=== PATIENT | male | born 1960 | race Caucasian/White ===

== ENCOUNTER 2017-03-14 11:14 | Inpatient (IN) | payer MEDICARE ==
[~2017-03-14] VITALS: Ht 152.4 cm; Wt 84.8 kg
--- NOTE | ~2017-03-14 | PN ---
Unit #: [id number] #: [id number] Patient: DELANO DRISCOLL [id number] [facility] [address] [place] [address] [id number] MR#: [id number] NAME: DELANO DRISCOLL ROOM: 74 Age: 56 Sex: M Admission Date: 03/14/2017 : 1960 Attending Physician: Chad Justin M.D. Admitting Physician: Chad Justin M.D. Primary Care Physician: Primary Care Physician Chio HARRISON PROGRESS NOTES DATE 03/17/2017 DISCUSSION The patient is abed today and seems to be emerging from delirium tremens. He continues to express interest in possible residential chemical dependence treatment. Dictated by... Chad Justin M.D. CB/luana TD: 03/17/2017 16:10 JOB #: [id number] [facility] PROGRESS NOTES Page 1 of 1 X Chad Justin MD X PROGRESS NOTE
--- NOTE | ~2017-03-14 | DS ---
Unit #: [id number] #: [id number] Patient: DELANO DRISCOLL [id number] [place] [address] [id number] MR#: [id number] NAME: DELANO DRISCOLL ROOM: 74 Age: 56 Sex: M Admission Date: 03/14/2017 : 1960 Discharge Date: 03/20/2017 Attending Physician: Chad Justin M.D. Primary Care Physician: Primary Care Physician No DISCHARGE SUMMARY REASON FOR ADMISSION The patient is a 56-year-old white male, admitted with recurrent abuse of alcohol. HOSPITAL COURSE The patient was admitted to the [facility] unit and placed on a routine detoxification protocol for alcohol. He did enter delirium tremens and required one-to-one observation for a couple of days early in the hospitalization but these have resolved by 03/17. The patient continued participation in the therapeutic milieu and began working towards a residential chemical dependence followup. By 03/20, the patient was discharged. He was, during his time in the hospital, started on Campral which he tolerated without complaint. DISCHARGE DIAGNOSES Hartfield I Alcohol use disorder. Hartfield II Hartfield III Hartfield IV Hartfield V DISPOSITION ON DISCHARGE The patient is discharged on the following medications: Campral 333 mg two tablets three times daily for alcohol craving PROGNOSIS The patient's prognosis is considered fair. DIET AND ACTIVITY No dietary or physical restrictions were placed on the patient at the time of discharge. Follow up will take place through the auspices of community mental health resources. Dictated by... Chad Justin M.D. CB/shayy Unit #: [id number] #: [id number] Patient: DELANO DRISCOLL TD: 03/22/2017 09:24 JOB #: [id number] DISCHARGE SUMMARY Page 1 of 1 X Chad Justin MD X DISCHARGE SUMMARY
--- NOTE | ~2017-03-14 | PN ---
Unit #: [id number] #: [id number] Patient: DELANO DRISCOLL [id number] [facility] [address] [place] [address] [id number] I MR#: [id number] NAME: DELANO DRISCOLL ROOM: 74 Age: 56 Sex: M Admission Date: 03/14/2017 : 1960 Attending Physician: Chad Justin M.D. Admitting Physician: Chad Justin M.D. Primary Care Physician: Primary Care Physician Chio HARRISON PROGRESS NOTES DATE 03/18/2017 DISCUSSION The patient is active within therapeutic milieu. He is now expressing interest in treatment at a residence facility in [place], [place]. He will meet with family members today related to this wish. In the meantime, I will go ahead and start the patient on Campral 333 mg 2 tablets 3 times daily in hopes of reducing some of the patient's craving for alcohol. Dictated by... Chad Justin M.D. CB/abbey TD: 03/18/2017 13:48 JOB #: [id number] [facility] PROGRESS NOTES Page 1 of 1 X Chad Justin MD X PROGRESS NOTE
--- NOTE | ~2017-03-14 | PN ---
Unit #: [id number] #: [id number] Patient: DELANO DRISCOLL [id number] [facility] [address] [place] [address] [id number] MR#: [id number] NAME: DELANO DRISCOLL ROOM: P174 Age: 56 Sex: M Admission Date: 03/14/2017 : 1960 Attending Physician: Chad Justin M.D. Admitting Physician: Chad Justin M.D. Primary Care Physician: Primary Care Physician Chio HARRISON PROGRESS NOTES DATE 03/16/2017 DISCUSSION The patient is abed today. He remains quite groggy but seems to be emerging from his delirium as he is able today to discuss with this physician post discharge planning i.e. residential chemical dependence treatment. Dictated by... Chad Justin M.D. CB/luana TD: 03/16/2017 15:29 JOB #: [id number] [facility] PROGRESS NOTES Page 1 of 1 X Chad Justin MD PROGRESS NOTE
--- NOTE | ~2017-03-14 | PA ---
Unit #: [id number] #: [id number] Patient: DELANO DRISCOLL [id number] [place] [address] [id number] MR#: [id number] NAME: DELANO DRISCOLL ROOM: P174 Age: 56 Sex: M Admission Date: 03/14/2017 : 1960 Date of Assessment: 03/14/2017 Attending Physician: Chad Justin M.D. Admitting Physician: Chad Justin M.D. Primary Care Physician: Primary Care Physician No PSYCHIATRIC ASSESSMENT IDENTIFYING INFORMATION The patient is a 56-year-old white male admitted with increasing alcohol use. INFORMANT(S) Patient. RELIABILITY Good. CHIEF COMPLAINT None given. HISTORY OF PRESENT ILLNESS The patient is a 56-year-old white male with a long history of alcohol dependence. He was last treated at this facility in 2013. He is currently residing with his mother who is a retired physician in [place]. He has a history of drinking up to a gallon of "moonshine" on a daily basis. 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 The patient reports that yesterday during the solar eclipse, he was "dancing in the street naked." The patient reports that he did not get into any trouble with the police but was certain at that point that he needed to take steps to stop his alcohol use. He is currently denying suicidal or homicidal ideation or psychotic symptoms. PAST PSYCHIATRIC HISTORY As above, the patient has been hospitalized at facility on a couple of occasions related to his alcohol dependence. FAMILY HISTORY Noncontributory. SOCIAL HISTORY The patient is currently living with his mother. He is employed and disabled secondary to a history of hip surgery x3. He completed "some college." MEDICAL HISTORY The patient is status post hip surgery x2. MEDICATION HISTORY The patient was previously prescribed Strattera, Seroquel, Motrin and Ultram. It is unclear what medications he is taking at this time. Unit #: [id number] #: [id number] Patient: DELANO DRISCOLL ALLERGIES None reported. MENTAL STATUS EXAM At this time, reveals the patient to be a well-developed, well-nourished white male appearing his stated age. He is in no apparent physical distress at time of the examination. He is awake, alert, oriented in all spheres. His mood is mildly dysphoric. His affect congruent. Speech is generally relevant and coherent. There are no gross deficits in memory or cognition noted. Intelligence is judged to be in the average range based on fund of knowledge. The patient is cooperative throughout the interview. He is currently denying suicidal/homicidal or psychotic features. Judgement and insight appear to be intact. ASSETS AND LIABILITIES Patient's assets, motivation for change. Liabilities, lack of resources. ADMITTING DIAGNOSES 1. Alcohol dependence. 2. Attention deficit disorder by history. 3. History of hip surgery. PSYCHIATRIC PLAN/TREATMENT GOALS The patient remains hospitalized for safety and stabilization. Routine detoxification protocol will be initiated. 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 The patient is in agreement with this plan. ESTIMATED LENGTH OF STAY Five to seven days. Dictated by... Chad Justin M.D. SHENA/luana TD: 03/14/2017 15:02 JOB #: [id number] PSYCHIATRIC ASSESSMENT Page 1 of 1 X Chad Justin MD X PSYCHIATRIC ASSESSMENT
--- NOTE | ~2017-03-14 | HP ---
Unit #: [id number] #: [id number] Patient: GREG DRISCOLL [id number] [place] [address] [id number] I MR#: [id number] NAME: GREG DRISCOLL ROOM: P174 Age: 56 Sex: M Admission Date: 03/14/2017 : 1960 Attending Physician: Chad Justin M.D. Admitting Physician: Chad Justin M.D. Primary Care Physician: Primary Care Physician No HISTORY AND PHYSICAL HISTORY OF PRESENT ILLNESS Greg is a 56 year old admitted to [facility] because of his abuse of alcohol. He is detoxing. PAST MEDICAL HISTORY 1. Long history of alcohol abuse. 2. History of peptic ulcer disease. 3. History of withdrawal seizures. 4. History of DVT with PE's. 5. History of avascular necrosis bilateral hips. PAST SURGICAL HISTORY 1. Bilateral hip replacements. 2. Duodenal ulcer repair. ALLERGIES Codeine. SOCIAL HISTORY Smokes 1/2 pack per day. Drinks at least a gallon, sometimes 2 gallons of moonshine on a daily basis and denies illicit drug use. FAMILY HISTORY Medically noncontributory. REVIEW OF SYSTEMS CONSTITUTIONAL: No fever or chills. HEENT: Denies any sore throat, ear pain or runny nose. CARDIOVASCULAR: Denies chest pain, irregular heart rhythm or palpitations. CHEST: Denies shortness of breath or cough. No hemoptysis. GASTROINTESTINAL: Denies nausea, vomiting, diarrhea or chronic constipation. ENDOCRINE: Denies history of increased thirst or urination. No recent significant weight loss or gain. GENITOURINARY: Denies dysuria, frequency, or hematuria. SKIN: Denies any rashes. HEMATOLOGIC: Denies history of increased bleeding or bruising. MUSCULOSKELETAL: Denies any hot, swollen joints. No generalized muscle pain. NEUROLOGIC: Denies problems with vision or speech. No frequent, severe headaches. No numbness, tingling or weakness in any extremities. Denies loss of bladder or bowel control. Unit #: [id number] #: [id number] Patient: GREG DRISCOLL CURRENT MEDICATIONS 1. Detox protocol. 2. Aspirin 81 mg daily. PHYSICAL EXAMINATION GENERAL: Alert, well-nourished, in no apparent distress. VITAL SIGNS: Blood pressure 132/86, heart rate 100, respirations 16, temperature 98.6. WEIGHT: 187. HEIGHT: 5 feet 0 inches. SKIN: Warm and dry without rash or lesion. HEENT: Normocephalic. TMs not viewed. Oral and nasal passages clear. Conjunctivae clear. PERRLA. EOMs intact. NECK: Supple without lymphadenopathy or thyromegaly. HEART: Regular rate and rhythm without murmur. LUNGS: Clear. ABDOMEN: Soft, nontender. : Not done. EXTREMITIES: No evidence of cyanosis, clubbing or edema. Moves all without focal deficit. NEUROLOGICAL: Grossly within normal limits. Cranial Nerves: II: Visual calabrese are intact. III, IV AND : Extraocular movements are intact. Pupils are equal, round and reactive to light. V: Facial sensation is grossly normal. VII: Facial movements and expression are normal. VIII: Auditory acuity grossly intact. IX, X: Uvula is midline. Phonation is normal. XI: Patient shrugs shoulders and turns head normally. XII: Tongue protrudes in the midline. Sensory and Motor Function: Sensory and motor sensation is grossly normal. Motor: moves all extremities well. Coordination: Gait is normal. Deep Tendon Reflexes: Intact. IMPRESSION Psychiatric admission. RECOMMENDATIONS PSYCHIATRIC: Per psychiatrist. MEDICAL: See no contraindication to participate in facility's activities. MEDICAL PROGNOSIS Good. MEDICAL CONDITION Stable. Dictated by... Patti Reardon P.A.-C. for [facility] Tong/luana TD: 03/14/2017 18:29 JOB #: [id number] Unit #: [id number] #: [id number] Patient: GREG DRISCOLL HISTORY AND PHYSICAL Page 1 of 1 X Patti Reardon HISTORY AND PHYSICAL
--- NOTE | ~2017-03-14 | PN ---
Unit #: [id number] #: [id number] Patient: DELANO DRISCOLL [id number] [facility] [address] [place] [address] [id number] I MR#: [id number] NAME: DELANO DRISCOLL ROOM: P174 Age: 56 Sex: M Admission Date: 03/14/2017 : 1960 Attending Physician: Chad Justin M.D. Admitting Physician: Chad Justin M.D. Primary Care Physician: Primary Care Physician Chio HARRISON PROGRESS NOTES DATE 03/19/2017 DISCUSSION The patient voices no new complaints today. His detox is uneventful and he is clearly emerged from DTs. He continues to work with his sponsor and family regarding post discharge chemical dependence treatment options. Dictated by... Chad Justin M.D. CB/nona TD: 03/19/2017 23:01 JOB #: [id number] [facility] NOTES Page 1 of 1 X Chad Justin MD PROGRESS NOTE
--- NOTE | ~2017-03-14 | PN ---
Unit #: [id number] #: [id number] Patient: DELANO DRISCOLL [id number] [facility] [address] [place] [address] [id number] MR#: [id number] NAME: DELANO DRISCOLL ROOM: P174 Age: 56 Sex: M Admission Date: 03/14/2017 : 1960 Attending Physician: Chad Justin M.D. Admitting Physician: Chad Justin M.D. Primary Care Physician: Primary Care Physician Chio HARRISON PROGRESS NOTES DATE 03/15/2017 DISCUSSION The patient is (1) __ for DTs and is requiring one-to-one observation. We continue aggressive treatment for alcohol withdrawal, and I will add p.r.n. Haldol should the patient becomes psychotic or more agitated. Dictated by... Chad Jsutin M.D. CB/abbey TD: 03/15/2017 14:58 JOB #: [id number] [facility] PROGRESS NOTES Page 1 of 1 X Chad Justin MD X PROGRESS NOTE
[2017-03-15 09:46] LABS: BASOPHIL% 1.1 % (0-2.5); EOSINOPHIL# 0.2 X10e3 (0-0.7); EOSINOPHIL% 4.7 % (0.0-7.0); HEMATOCRIT 39.2 % (38.0-50.0); HEMOGLOBIN 13.5 gm/dL (13.0-16.0); LYMPHOCYTE# 0.8 X10e3 (1.0-3.5); LYMPHOCYTE% 21.5 % (17.0-45.0); MEAN CELL VOLUME 99.5 FL (83-96); MEAN CORPUSCULAR HEMOGLOBIN 34.3 PG (28-34); MEAN CORPUSCULAR HGB CONC 34.4 g/dL (30-36); MONOCYTE# 0.3 X10e3 (0-1.0); MONOCYTE% 8.2 % (3.0-12.0); NEUTROPHIL# 2.4 X10e3 (1.5-7.1); NEUTROPHIL% 64.5 % (40-75); PLATELET COUNT 224 X10e3 (140-420); RED BLOOD COUNT 3.94 X10e (3.90-5.60); RED CELL DISTRIBUTION WIDTH 14.7 % (11.0-15.5); WHITE BLOOD COUNT 3.7 X10e3 (4.0-10.5)
[2017-03-15 09:47] LABS: DIFF IND NO
[2017-03-15 10:00] LABS: URINE APPEARANCE TURBID; URINE BILIRUBIN NEG (NEG); URINE BLOOD NEG (NEG); URINE COLOR DK YELLOW; URINE GLUCOSE NEG (NEG); URINE KETONE TRACE (NEG); URINE LEUKOCYTE ESTERASE NEG (NEG); URINE NITRATE NEG (NEG); URINE PH 5.5 (5-8); URINE PROTEIN TRACE (NEG)
[2017-03-15 10:28] LABS: ALBUMIN SERUM 3.7 g/dL (3.5-5.0); BILIRUBIN,TOTAL 0.8 mg/dL (0.2-2.0); BUN/CREATININE RATIO 18.57; CALCIUM SERUM 9.3 mg/dL (8.4-10.2); CREATININE SERUM 0.7 mg/dL (0.6-1.4); POTASSIUM 4.5 mmol/L (3.5-5.1); PROTEIN TOTAL SERUM 6.8 g/dL (6.0-8.3)
[2017-03-15 10:40] LABS: AMPHETAMINE NEG (NEG); BARBITURATES NEG (NEG); BENZODIAZEPINES POS (NEG); COCAINE NEG (NEG); MARIJUANA NEG (NEG); OPIATES NEG (NEG); TRICYCLIC ANTIDEPRESSANTS NEG (NEG); U METHADONE NEG (NEG)
== END 2017-03-20 15:15 | disposition home or self-care (01) | DRG 897 ==
LOC: P1E 12:37
PROVIDERS: Specialist
PROC: HZ2ZZZZ Detoxification Services for Substance Abuse Treatment (ICD-10-PCS; principal; 2017-03-14)
DX: F10.239 Alcohol dependence with withdrawal, unspecified (principal); F17.200 Nicotine dependence, unspecified, uncomplicated; F90.9 Attention-deficit hyperactivity disorder, unspecified type
CPT/HCPCS: 80053; 80307; 81003; 85025; 86592; J2550